=== PATIENT | male | born 1975 | race Caucasian/White ===

== ENCOUNTER 2024-03-15 06:19 | Day surgery (SDC) | payer BC ==
[~2024-03-15 06:19] MED LIST: Acetaminophen 1,000 MG in Premix Bag 1 BAG IV SCH
[2024-03-15] MEDS: Scopalamine 1mg/3day Transdermal Patch TOP ONE (06:45)
[2024-03-15] MEDS ORDERED: fentaNYL 50 MCG/ML SDV IVPUSH PRN (06:57)
[2024-03-15] MEDS ORDERED: Metoclopramide 10 MG/2 ML SDV IVPUSH PRN (06:57)
[2024-03-15] MEDS ORDERED: Ondansetron 4 MG/2 ML SDV IVPUSH PRN (06:57)
[2024-03-15] MEDS ORDERED: HYDROmorphone 1 MG/ML Syringe IVPUSH PRN (06:57)
[2024-03-15] MEDS ORDERED: droPERidol 5 MG/2 ML SDV IVPUSH PRN (06:57)
[2024-03-15] MEDS ORDERED: Naloxone 0.4 MG/ML SDV IVPUSH PRN (06:57)
[2024-03-15] MEDS ORDERED: Morphine 2 MG/ML SYRINGE IVPUSH PRN (06:57)
[2024-03-15] MEDS ORDERED: Albuterol 0.083% 2.5 MG/3 ML Neb Soln NEB PRN (06:57)
[2024-03-15] MEDS: Lactated Ringers 1,000 ML IV SCH (07:00)
[2024-03-15] MEDS: Pregabalin 75 MG Cap PO SCH (07:00)
[2024-03-15] MEDS ORDERED: Bupivacaine 0.5% 30 ML SDV ONE (07:18)
[2024-03-15] MEDS ORDERED: dexmedeTOMIDine HCl 200 MCG/2 ML SDV ONE (07:32)
[2024-03-15] MEDS ORDERED: fentaNYL 100 MCG/2 ML SDV ONE (07:33)
[2024-03-15] MEDS ORDERED: Propofol 200 MG/20 ML SDV ONE (07:33)
[2024-03-15] MEDS ORDERED: Water For Injection, Sterile 20 ML ONE (07:33)
[2024-03-15] MEDS ORDERED: Ropivacaine 0.5% 5 MG/ML 30 ML SDV ONE (07:34)
[2024-03-15] MEDS ORDERED: Rocuronium Bromide 50 MG/5 ML Syringe ONE ×2 (07:35→09:00)
[2024-03-15] MEDS ORDERED: Water For Injection, Sterile 40 ML ONE (07:36)
[2024-03-15] MEDS ORDERED: Ondansetron 4 MG/2 ML SDV ONE (08:02)
[2024-03-15] MEDS ORDERED: Dexamethasone 4 MG/ML 5 ML MDV ONE (08:02)
[2024-03-15] MEDS ORDERED: ceFAZolin 2 GM Vial ONE (08:04)
[2024-03-15] MEDS ORDERED: ceFAZolin 1 GM Vial ONE (08:04)
[2024-03-15] MEDS ORDERED: Ketorolac 30 MG/ML SDV ONE (08:32)
[2024-03-15] MEDS ORDERED: Sugammadex Sodium 200 MG/2 ML VIAL IV ONE (08:32)
[2024-03-15] MEDS ORDERED: ceFAZolin 2 GM in Sodium Chloride 0.9% 50 ML IV ONE (10:07)
== END 2024-03-15 12:40 | disposition home or self-care (01) ==
LOC: MW.SDS 06:19
PROVIDERS: ATTEND Surgery
DX: K43.6 Other and unspecified ventral hernia with obstruction, without gangrene (principal); K42.9 Umbilical hernia without obstruction or gangrene
CPT/HCPCS: 49594; 64488; A9270; C1781; J0665; J0690; J1100; J1885; J2405; J2704; J2795; J3010; J3490; J7120; 00790